=== PATIENT | female | born 1995 | race Hispanic/Latino ===

== ENCOUNTER 2018-10-16 06:42 | Inpatient (IN) | payer OTHER ==
[2018-10-16] MEDS ORDERED: miSOPROStol 100 MCG TAB ONE (16:27)
[2018-10-16] MEDS ORDERED: Ringers Lactate 1,000 ML IV PRN (16:51)
[2018-10-16] MEDS ORDERED: METHYLERGONOVINE 0.2MG/ML AMP IM PRN ×2 (16:51→21:45)
[2018-10-16] MEDS ORDERED: CARBOPROST TROME 250 MCG/ML IM PRN ×2 (16:51→21:45)
[2018-10-16] MEDS ORDERED: miSOPROStol 100 MCG TAB PO SCH ×2 (17:00→22:00)
[2018-10-16] MEDS ORDERED: Ringers Lactate 1,000 ML IV SCH (17:00)
[2018-10-16 17:30] LABS: Absolute Lymphocytes (CBC) 1.5 K/uL (0.7-4.9); Absolute Monocytes 0.7 K/uL (0.1-1.3); Absolute Neutrophil 9.9 K/uL (1.8-8.0); Basophils % 0.2 % (0-1.3); Eosinophils % 0.8 % (0-4.4); Hematocrit 30.4 % (36.0-45.0); Lymphocytes % 12.1 % (15.3-44.8); MPV 7.4 fL (7.6-11.3); Monocytes % 5.5 % (3.3-12.3); RBC Red Blood Cell Count 3.76 M/uL (3.86-4.86)
[2018-10-16 17:33] VITALS: BMI 40.5
[2018-10-16 18:14] LABS: RPR Titer ND
[2018-10-16] MEDS ORDERED: MEPERIDINE HCL 25 MG/0.5 ML IV PRN (21:45)
[2018-10-16] MEDS ORDERED: BUTORPHANOL 1 MG/ML INJ IV PRN (21:45)
[2018-10-16] MEDS ORDERED: PROMETHAZINE 25 MG/ML VIAL IM PRN (21:45)
[2018-10-16 22:04] LABS: Urine Appearance CLEAR; Urine Bilirubin NEGATIVE (NEG); Urine Blood NEGATIVE (NEG); Urine Color YELLOW; Urine Glucose NEGATIVE (NEG); Urine Microscopic Reflex NO UMIC; Urine Protein NEGATIVE (NEG); Urine Urobilinogen 0.2 mg/dL (0.2-1.0); Urine pH 6.5 (5.0-7.0)
[2018-10-16 22:29] LABS: Urine Amorphous Sediment 1+ /HPF (NONE SEEN); Urine Bacteria 20-50 /HPF (<20); Urine Culture Reflex Order REFLEXED; Urine RBC <5 /HPF (NONE SEEN)
[2018-10-16] MEDS: ZOLPIDEM TARTRATE 5 MG TABLET PO PRN ×2 (22:45→23:15)
[2018-10-17] MEDS ORDERED: ROPIVACAINE HCL 100 ML IV PRN (02:47)
[2018-10-17] MEDS ORDERED: ROPIVACAINE HCL 0.2% 20ML AMP IV ONE (02:52)
[2018-10-17] MEDS ORDERED: FENTANYL CITR 100 MCG/2 ML IV ONE (04:49)
[2018-10-17] MEDS ORDERED: OXYTOCIN/LR 20 UNIT/1,000 ML BAG IV SCH ×2 (05:00→09:00)
[2018-10-17] MEDS ORDERED: FENTANYL CITR 100 MCG/2 ML ONE (05:27)
[2018-10-17] MEDS ORDERED: METHYLERGONOVINE 0.2MG/ML AMP IM PRN (07:45)
[2018-10-17] MEDS ORDERED: CARBOPROST TROME 250 MCG/ML IM PRN (07:45)
[2018-10-17] MEDS ORDERED: LIDOCAINE 1% 20 ML MDV IV ONE (07:47)
[2018-10-17] MEDS ORDERED: LIDOCAINE 1% 20 ML MDV ONE (08:15)
[2018-10-17] MEDS ORDERED: DIPHENHYDRAMINE 25 MG TAB/CAP PO PRN (08:28)
[2018-10-17] MEDS ORDERED: ACETAMINOPHEN 500 MG TAB PO PRN (08:28)
[2018-10-17] MEDS ORDERED: DOCUSATE NA/SENNA CONC 1 TAB PO PRN (08:28)
[2018-10-17] MEDS ORDERED: BISACODYL 10 MG RECTAL SUPP RECT PRN (08:28)
--- NOTE | 2018-10-17 08:56 | PREOPHP ---
Date of Admission: 10/16/2018 A 22-year-old 2, para 1, 39 weeks gestation for Cytotec preparation of the cervix. Full disc ussion prior to admission about Cytotec, increased risk for hypertonic contractions, C-sections but t he patient wishes to proceed. She is 1.5 cm, 50% effaced, vertex, cervix is posterior -1 station on the vertex, FHT is normal, reactive. Vital are stable. Rh positive, immune to Rubella. Negative be ta strep screen. Cytotec talk given. Anticipate labor sometime this evening or tomorrow morning calvin allison. BEULAH/KAYLEIGH Voice ID: [id number]
[2018-10-17] MEDS: IBUPROFEN 200 MG TAB PO PRN ×2 (09:29→17:00)
[2018-10-17] MEDS: Oxycodone HCl/Acetaminophen 1 TAB TAB PO PRN ×4 (09:29→21:15)
--- NOTE | 2018-10-17 09:34 | PREOPHP ---
Date of Admission: 10/16/2018 Addendum: Delivery anticipated sometime tomorrow, not tomorrow serenity RIOJAS/KAYLEIGH Voice ID: [id number]
--- NOTE | 2018-10-17 11:52 | PN ---
The patient is doing pelvic rocks as instructed. After rupture of membranes she has shown very rapid progress. She is now 6.5, 90%, 0 station. Scalp electrode placed. Fluid is still nice and clear. Vital signs are stable. She is starting to feel pressure. Preparations are being made for delivery as it appears she is going quite rapidly from this point forward. BEULAH/KAYLEIGH Voice ID: [id number] Report ID: [id number]
--- NOTE | 2018-10-17 11:52 | PN ---
A 22-year-old 2, para 1. The patient is on 6 milliunits of Pitocin during the night. Reques billie and received epidural anesthesia. She has progressed to 3.5 to almost 4 cm, 70% effaced, vertex, -1 station. Rupture of membranes, clear fluid. She is quite numb with the epidural, we will leave it at current setting but as we approach delivery we may decrease it a little bit so the patient can push more effectively when the time comes. Full discussion with the patient this morning. BEULAH/KAYLEIGH Voice ID: [id number] Report ID: [id number]
--- NOTE | 2018-10-17 11:55 | PN ---
A 22-year-old 2, para 1, 39 weeks. Cytotec was placed yesterday evening. The patient states that at 3 a.m. she went into an active labor. This morning was 3.5 to 4 cm, rupture of membranes, c lear fluid. The patient went very rapidly to complete and delivered before 8 a.m. Second stage about 15 minutes. Spontaneous vaginal delivery of an estimated 8-pound plus or minus female, nuchal cord x1. Apgars 8 and 9. Small first-degree laceration repaired with 2-0 chromic. Schultze delivery of the placenta, which was inspected and noted to be intact and normal. 350 cc blood loss. Uterus cont racted down well with IV drip Pitocin and massage. The patient is Rh positive, immune to Rubella. N egative beta strep screen. Tolerated all procedures well. Final Diagnoses: Term intrauterine 39 weeks 1 day at the time of delivery. Cytotec for la bor induction. Vaginal delivery. Epidural anesthesia. Nuchal cord x1. BEULAH/KAYLEIGH Voice ID: [id number] Report ID: [id number]
[2018-10-17] MEDS ORDERED: ZOLPIDEM TARTRATE 5 MG TABLET PO SCH (21:00)
[2018-10-18] MEDS: Oxycodone HCl/Acetaminophen 1 TAB TAB PO PRN ×2 (01:15→08:15)
[2018-10-18 08:14] VITALS: BP 119/68; TEMP 97.8
--- NOTE | 2018-10-18 19:30 | DS ---
Date of Discharge: 10/18/2018 A 22-year-old, 2, para 1, 39 weeks and 1 day at the time of delivery. Rh positive, immune to Rubella. Negative beta strep screen. The patient was delivered of an 8-pound 9-ounce female. Apga rs 8 and 9. Small first-degree laceration repaired with 2-0 chromic under local infiltration. Epidu ral anesthesia gave good effect during remainder of labor and delivery. Nuchal cord x1 noted at time of delivery. Schultze delivery of the placenta. Estimated blood loss 350 cc or less. , afebrile. Ambulating and voiding. Lochia is normal. She will be dismissed later this morning to re port back to my office in 6 weeks for followup, to report any temperature elevation of 100 degrees or greater, severe pain, heavy bleeding, or any other type of abnormalities. Offered Tdap administrati on, numerous times during the and again today. The patient will decide before she leaves. No post epidural problems. Dismissed with tramadol for analgesia, although she may elect to take Mo marya instead. Final Diagnoses: Term intrauterine 39 weeks 1 day at delivery, 8-pound 9-ounce female. Nu chal cord x1. Tdap offered. BEULAH/KAYLEIGH Voice ID: [id number] Report ID: [id number]
[2018-10-18 20:32] LABS: RPR (Rapid Plasma Reagin) NON-REACT (NON-REACT)
[2018-10-19 17:39] LABS: HBsAG Nonreactive (Nonreactive)
--- NOTE | 2018-10-21 17:25 | OP ---
Surgeon: Alan Grimaldo MD A 22-year-old 2, para 1, 39 weeks 1 day. Rh positive, immune to Rubella. Negative beta stre p screen. The patient was delivered of an 8-pound 9-ounce female, uneventful labor, uneventful secon d stage, Apgars 8 and 9. Small first-degree laceration repaired with 2-0 chromic under local infiltr ation. Nuchal cord x1 noted at time of delivery. Schultze delivery of the placenta. Estimated bloo d loss 350 cc. Tolerated all procedures well. Final Diagnoses: Vaginal delivery at 39 weeks 1 day. Loose nuchal cord. BEULAH/KAYLEIGH Voice ID: [id number] Report ID: [id number]
== END 2018-10-18 10:15 | disposition home or self-care (01) | DRG 807 ==
LOC: 2ND-WC 15:55
PROVIDERS: ADMIT Specialist; ATTEND Specialist
PROC: 3E0P7VZ Introduction of Hormone into Female Reproductive, Via Natural or Artificial Opening (ICD-10-PCS; 2018-10-16)
PROC: 10907ZC Drainage of Amniotic Fluid, Therapeutic from Products of Conception, Via Natural or Artificial Opening (ICD-10-PCS; principal; 2018-10-17)
PROC: 10E0XZZ Delivery of Products of Conception, External Approach (ICD-10-PCS; 2018-10-17)
PROC: 0HQ9XZZ Repair Perineum Skin, External Approach (ICD-10-PCS; 2018-10-17)
DX: O70.0 First degree perineal laceration during delivery (principal); Z37.0 Single live birth; O69.81X0 Labor and delivery complicated by cord around neck, without compression, not applicable or unspecified; Z3A.39 39 weeks gestation of pregnancy
CPT/HCPCS: 36415; 81003; 81015; 85025; 86592; 86901; 87086; 87088; 87340; J0595; J2210; J2550; J2590; J2795; J3010

== ENCOUNTER 2021-06-19 03:48 | Inpatient (IN) | payer OTHER ==
[2021-06-19] MEDS ORDERED: CARBOPROST TROME 250 MCG/ML IM PRN (04:00)
[2021-06-19] MEDS ORDERED: METHYLERGONOVINE 0.2MG/ML AMP IM PRN (04:00)
[2021-06-19] MEDS ORDERED: Ringers Lactate 1,000 ML IV SCH (04:00)
[2021-06-19] MEDS ORDERED: Ringers Lactate 1,000 ML IV PRN (04:00)
[2021-06-19] MEDS ORDERED: OXYTOCIN/LR 20 UNIT/1,000 ML BAG IV SCH ×2 (04:00→12:00)
[2021-06-19] MEDS ORDERED: BUTORPHANOL 1 MG/ML INJ IV PRN (04:00)
[2021-06-19] MEDS ORDERED: PROMETHAZINE INJ 25 MG/ML AMP IM PRN (04:00)
[2021-06-19] MEDS ORDERED: PENICILLIN 5 MU in NA CHLORIDE 0.9% 100 ML IV ONE (04:00)
[2021-06-19 05:36] LABS: Absolute Lymphocytes (CBC) 2.5 K/uL (0.7-4.9); Hematocrit 30.5 % (36.0-45.0); Lymphocytes % 26.5 % (15.3-44.8); MPV 7.7 fL (7.6-11.3); RBC Red Blood Cell Count 3.76 M/uL (3.86-4.86)
[2021-06-19 05:58] VITALS: BMI 34.5
[2021-06-19] MEDS ORDERED: LIDOCAINE 1% 20 ML MDV ONE (07:50)
[2021-06-19] MEDS ORDERED: PENICILLIN 2.5 MU in NA CHLORIDE 0.9% 100 ML IV SCH (08:00)
--- NOTE | 2021-06-19 08:16 | PREOPHP ---
Date of Admission: 06/19/2021 History Of Present Illness: Esteban Ruiz is a 25-year-old, 3, para 2, 39 weeks for inductio n. Pros and cons of this thoroughly discussed prior to admission. The patient is Rh positive, immun e to rubella, positive strep. She will be getting antibiotics during the labor. Positive COVID, abs olutely no symptoms whatsoever. Family History: Noncontributory. Past Medical History: The patient has had a gastric sleeve and her tonsils removed. No STDs. Allergies: NO HISTORY OF ALLERGIES. Social History: No cigarette smoking. Medications: No medicines prior to admission other than vitamins and iron. Physical Examination: HEENT: Clear. Pupils equal, round, reactive to light and accommodation. Conjunctivae well perfused . No oral, lingual, or buccal lesions. Chest and Lungs: Clear. Heart: Without murmurs, thrills, heaves, or rubs. Breasts: Not examined today, but without masses on previous visits. Abdomen: Term size. Extremities: Clear without edema, cyanosis, or clubbing. Pelvic: A 2 cm, still somewhat posterior, 50% effaced. Rupture of membranes, clear fluid. FHTs nor mal, reactive. Assessment And Plan: Anticipate more active labor as the day goes on. The patient probably will be requesting epidural. Full labor talk given. BEULAH/KAYLEIGH Voice ID: [id number]
[2021-06-19] MEDS ORDERED: ROPIVACAINE HCL 0.2% 20ML AMP EP ONE (08:32)
[2021-06-19] MEDS ORDERED: 0.2% ROPIVACAINE (200 MG/100 ML) BAG EP ONE (08:34)
[2021-06-19] MEDS ORDERED: FENTANYL CITR 100 MCG/2 ML IV ONE (08:35)
[2021-06-19] MEDS ORDERED: BISACODYL 10 MG RECTAL SUPP RC PRN (11:48)
[2021-06-19] MEDS ORDERED: IBUPROFEN 600 MG TAB PO PRN (11:48)
[2021-06-19] MEDS ORDERED: Oxycodone HCl/Acetaminophen 1 TAB TAB PO PRN ×2 (11:48)
[2021-06-19] MEDS ORDERED: DOCUSATE NA/SENNA CONC 1 TAB PO PRN (11:48)
[2021-06-19] MEDS ORDERED: DIPHENHYDRAMINE 25 MG TAB/CAP PO PRN (11:48)
[2021-06-19] MEDS ORDERED: ACETAMINOPHEN 500 MG TAB PO PRN (11:48)
--- NOTE | 2021-06-19 13:31 | OP ---
Surgeon: Alan Grimaldo MD Procedure In Detail: Esteban Ruiz is 25-year-old, 3, para 2, 39 weeks gestation, followed a ntepartum without complications. Rh positive, immune to rubella, positive strep. Positive COVID, ac tually no symptoms from COVID. This morning, she was 2 cm, rupture of membranes, clear fluid. When she reached 4, requested and received epidural anesthesia, which gave excellent effect. Then, went t o complete within the next 30 minutes. Second stage of about 10 minutes. Spontaneous vaginal delive ry of a 6-pound 10-ounce female, Apgars 9 and 9. Delayed cord clamping at her request. One extremel y small tear in the epithelium at the posterior fourchette, 1 uevxth-cc-uholn stitch, 2-0 chromic at that point. Uterus moderately hypotonic. 0.2 mg of Methergine IM as well as IV drip and massage, an d intrauterine exploration all negative. We will give the patient 1 g of Ancef for prophylaxis, keep her on Methergine for at least 4 doses, keep the IV going until later this evening, but right now, t he uterus is very firm and the lochia is minimal. Final Diagnoses: Term intrauterine at 39 weeks, vaginal delivery, positive COVID, positive strep, penicillin prophylaxis, moderate uterine hypotonus now resolved. BEULAH/GUALBERTOL Voice ID: [id number] Report ID: [id number]
[2021-06-19] MEDS ORDERED: CEFAZOLIN 1 GM in NA CHLORIDE 0.9% 50 ML IVPB ONE (13:48)
[2021-06-19] MEDS ORDERED: CEFAZOLIN/NS 1gm 1 GM/50 ML BAG ONE (13:49)
[2021-06-19] MEDS: METHYLERGONOVINE 0.2 MG TAB PO PRN ×3 (15:45→23:13)
[2021-06-20] MEDS: METHYLERGONOVINE 0.2 MG TAB PO PRN (03:37)
--- NOTE | 2021-06-20 08:16 | DS ---
Hospital Course: Esteban Ruiz is a 25-year-old, 3, para 2, 39 weeks gestation, delivered a 6-pound 10-ounce female, Apgars 9 and 9. No episiotomy. Very small first-degree laceration, which b dee broke the epithelial surface, 1 aoratp-hy-qsbst stitch with 2-0 chromic under local infiltratio deven Nguyen delivery of the placenta, which was inspected and noted to be intact and normal. Modera te uterine hypotonus. 0.2 mg of Methergine IM followed by p.o. Methergine 1 tablet every 4 hours for 4 doses. Estimated blood loss 450 cc. Penicillin prophylaxis as the patient was strep positive. S he is also COVID positive, absolutely without symptoms. She will be dismissed later today to report back to my office in 6 weeks for followup to report any temperature elevation of 100 degrees or great er, severe pain, heavy bleeding, or any other type of abnormalities. Tdap has been discussed with th e patient. We will find out if she has not had it and offer to her again here in the hospital. Final Diagnoses: Term intrauterine at 39 weeks, labor induction, vaginal delivery, moderat e uterine hypotonus, penicillin prophylaxis. VINAYAKC/MODL Voice ID: [id number] Report ID: [id number]
[2021-06-20 13:26] VITALS: BP 110/62; TEMP 97.8
[2021-06-20 20:52] LABS: RPR (Rapid Plasma Reagin) NON-REACT (NON-REACT)
[2021-06-22 12:55] LABS: HBsAG Nonreactive (Nonreactive)
== END 2021-06-20 13:15 | disposition home or self-care (01) | DRG 805 ==
LOC: 2ND-WCNRSY 03:48 → 2ND-WC 05:27
PROVIDERS: ADMIT Specialist; ATTEND Specialist
PROC: 10E0XZZ Delivery of Products of Conception, External Approach (ICD-10-PCS; principal; 2021-06-19)
PROC: 10907ZC Drainage of Amniotic Fluid, Therapeutic from Products of Conception, Via Natural or Artificial Opening (ICD-10-PCS; 2021-06-19)
PROC: 0HQ9XZZ Repair Perineum Skin, External Approach (ICD-10-PCS; 2021-06-19)
PROC: 3E033VJ Introduction of Other Hormone into Peripheral Vein, Percutaneous Approach (ICD-10-PCS; 2021-06-19)
DX: O98.52 Other viral diseases complicating childbirth (principal); U07.1 COVID-19; Z37.0 Single live birth; O70.0 First degree perineal laceration during delivery; O99.824 Streptococcus B carrier state complicating childbirth; O62.2 Other uterine inertia; Z3A.39 39 weeks gestation of pregnancy
CPT/HCPCS: 36415; 85025; 86592; 87340; J0595; J0690; J2210; J2540; J2550; J2590; J2795; J3010; J7120; U0003

== ENCOUNTER 2022-09-09 16:25 | Emergency (ER) | payer OTHER ==
--- OUTSIDE RECORDS SUMMARY | 2022-09-09 16:31 | XMS REPORT | Continuity of Care Document ---
:1995 Author Organization [facility] t Address [address] [place] [address] Care Team Providers Name Role Phone PCP, PATIENT DOES NOT HAVE A Primary Care Physician Unavaila ARUN Morales Attending Clinician Unavailable Taran ARBOLEDA, Arun Vásquez Attending Clinician Kevin Shane CRNA Attending Clinician Gideon Castillo MD Attending Clinician Pob, Ad[facility] Lab Main Attending Clinician Unavailable Only, Adc Test Attending Clinician Unavailable Doctor Unassigned, [place] Attending Clinician Unavailable Arun Chirinos MD Admitting Clinician ARUN CHIRINOS Admitting Clinician Unavailable Payers Payer Name Policy Type Policy Number Effective Date Expiration Date Formerly [facility] [id number] 2021 CHOICE MEDICAID 00:00:00 Problems Condition Condition Condition Status Onset Resolution Last Treating Co mments Source Name Details Category Date Date Treatment Clinician Date Status Status Disease Active Univers post post 5-24 [place] sal[place] salping[place] 00 Me dical charu charu Branch Encounter Encounter Disease Active Overview: Univers for tubal for tubal 4-15 Formattin i ty of ligation ligation 00:00: g of this [place] as 00 note Medical might be Branch different from the original. Added automatic ally from request for surgery [id number] Allergies, Adverse Reactions, Alerts Allergy Allergy Status Severity Reaction(s) Onset Inactive Treating Comm ents Source Name Type Date Date Clinician NO KNOWN Drug Active Univers ALLERGIE Class ity of [facility] Social History Social Habit Start Date Stop Date Quantity Comments Source History SDOH University o f Alcohol Frequency [place] M edical Branch History On license of [facility] o f Alcohol Std [place] Medical Drinks Branch History On license of [facility] o f Alcohol Binge [place] Medic al Branch Alcohol intake 2021-09-30 2021-09-30 Current drinker of Un iversity of 00:00:00 00:00:00 alcohol (finding) [facility] edical Branch Exposure to 2021-09-13 2021-09-23 Not sure University SARS-CoV-2 00:00:00 09:05:00 [facility] (event) Branch Tobacco use and 2021-08-22 2021-08-22 Never used Universit y of exposure 00:00:00 00:00:00 [facility] Alcohol Comment 2021-08-22 2021-08-22 occasionally Univers ity of 00:00:00 00:00:00 [facility] Sex Assigned At [birth year] Universit y of 00:00:00 00:00:00 [facility] Smoking Status Start Date Stop Date Source Never smoker [facility] Medications Ordered Filled Start Stop Current Ordering Indication Dosage Frequency Signature Comments Components Source Medication Medication Date Date Medication? Clinician (SIG) Name Name HYDROmorpho Yes .2mg 0.2 mg, Uni vers ne 5-24 Slow IV ity of (DILAUDID) 14:16: Push, [place] injection 14 Q5MIN PRN, Medi prerna 0.2 mg 10 doses, Branch Starting on Wed09/30/21 at 0916, Until Discontinu ed, Routine, Pain (scale 7-10), PACU
Us e approved by (Faculty): PACU USE -ANESTHESI A SERVICE-HY DROMORPHON E INJECTIONS FENTanyl PF Yes 25ug 25 mcg, Uni vers (SUBLIMAZE 5-24 Slow IV ity of (PF)) 14:16: Push, [place] injection 14 Q5MIN PRN, Medi prerna 25 mcg 4 doses, Branch Starting on Wed09/30/21 at 0916, Until Discontinu ed, Routine, Pain (scale 4-6), PACU ondansetron Yes 4mg 4 mg, Slow Univers (ZOFRAN 5-24 IV Push, ity of (PF)) 14:16: PRN, 1 [place] injection 4 14 dose, Medical mg Starting Branch on Wed09/30/21 at 0916, Until Discontinu ed, Routine, Nausea and Vomiting (N/V), PACU HYDROmorpho 2021- No .2mg 0.2 mg, Un demetris ne 09-30 Slow IV ity of (DILAUDID) 14:16: 18:04 Push, [place] injection 14 :03 Q5MIN PRN, Medi prerna 0.2 mg 10 doses, Branch Starting on Wed09/30/21 at 0916, Until Wed09/30/21 at 1304, Routine, Pain (scale 7-10), PACU
Us e approved by (Faculty): PACU USE -ANESTHESI A SERVICE-HY DROMORPHON E INJECTIONS FENTanyl PF 2021- No 25ug 25 mcg, Un demetris (SUBLIMAZE 09-30 Slow IV ity o f (PF)) 14:16: 18:04 Push, [place] injection 14 :03 Q5MIN PRN, Medi prerna 25 mcg 4 doses, Branch Starting on Wed09/30/21 at 0916, Until Wed09/30/21 at 1304, Routine, Pain (scale 4-6), PACU ondansetron 2021- No 4mg 4 mg, Slow Univers (ZOFRAN 09-30 IV Push, ity of (PF)) 14:16: 18:04 PRN, 1 [place] injection 4 14 :03 dose, Medical mg Starting Branch on Wed09/30/21 at 0916, Until Wed09/30/21 at 1304, Routine, Nausea and Vomiting (N/V), PACU neostigmine 2021- No Slow IV Un demetris methylsulfa 09-30 Push, ONCE i ty of te 13:48: 14:00 INTRA [place] (BLOXIVERZ) 00 :57 PROCEDURE, Me dical injection Starting Branch on Wed09/30/21 at 0848, Until Wed09/30/21 at 0900, Routine, Intra-op ondansetron 2021- No Slow IV Un demetris (ZOFRAN 09-30 Push, ONCE ity o f (PF)) 13:36: 14:00 INTRA [place] injection 00 :57 PROCEDURE, [facility] prerna Starting Branch on Wed09/30/21 at 0836, Until Wed09/30/21 at 0900, Routine, Intra-op water for Yes PRN, Univers irrigation 09-30 Starting ity o f irrigation 13:30: on Wed [place] solution 00 09/30/21 at Medic al 0830, Branch Until Discontinu ed, Routine, Intra-op water for 2021- No PRN, Univers irrigation 09-30 Starting ity of irrigation 13:30: 18:04 on Wed [place] solution 00 :03 09/30/21 at Medic al 0830, Branch Until Wed09/30/21 at 1304, Routine, Intra-op glycopyrrol 2021- No Intravenou Univers ate 09-30 s, ONCE ity of (ROBINUL) 13:27: 14:00 INTRA [place] injection 00 :57 PROCEDURE, [facility] Starting Branch on Wed09/30/21 at 0827, Until Wed09/30/21 at 0900, Routine, Intra-op bupivacaine 2021- No PRN, Unive rs -epinephrin 09-30 Starting ity of e-pf 13:15: 14:24 on Wed (SENSORCAIN 00 :44 09/30/21 at Nc dical E 0815, Branch W/EPINEPHRI Until Wed) 0.5 09/30/21 at %-1:200,000 0924, injection Routine, Intra-op ketorolac 2021- No Slow IV Univ ers (TORADOL) 09-30 Push, ONCE ity of injection 13:09: 14:00 INTRA [place] 00 :57 PROCEDURE, Medical Starting Branch on Wed09/30/21 at 0809, Until Wed09/30/21 at 0900, Routine, Intra-op acetaminoph 2021- No IV Unive rs en ADULT 09-30 Infusion, ity o f (OFIRMEV) 13:09: 14:00 Administer [place] injection 00 :57 over 15 Medical Minutes, Branch ONCE INTRA PROCEDURE, Starting on Wed09/30/21 at 0809, Until Wed09/30/21 at 0900, Routine, Intra-op dexamethaso 2021- No IV Push, U nivers ne 09-30 ONCE INTRA ity of (DECADRON 13:06: 14:00 PROCEDURE, [place] PHOSPHATE) 00 :57 Starting Medic al injection on Branch 09/30/21 at 0806, Until Wed09/30/21 at 0900, Routine, Intra-op rocuronium 2021- No IV Push, Un demetris (ZEMURON) 09-30 ONCE INTRA ity of injection 12:47: 14:00 PROCEDURE, [place] 00 :57 Starting Medical on Wed Branch 09/30/21 at 0747, Until Wed09/30/21 at 0900, Routine, Intra-op propofoL IV 2021- No Intravenou Univers infusion 09-30 s, ONCE ity of 12:47: 14:00 INTRA [place] 00 :57 PROCEDURE, Medical Starting Branch on Wed09/30/21 at 0747, Until Wed09/30/21 at 0900, Routine, Intra-op lidocaine 2021- No Intravenou U nivers 1% 09-30 s, ONCE ity of (XYLOCAINE) 12:47: 14:00 INTRA [place] 100 mg/10 00 :57 PROCEDURE, Medi prerna mL (1 %) Starting Branch injection on Wed09/30/21 at 0747, Until Wed09/30/21 at 0900, Routine, Intra-op FENTanyl PF 2021- No Intravenou Univers (SUBLIMAZE 09-30 s, ONCE ity o f (PF)) 12:47: 14:00 INTRA [place] injection 00 :57 PROCEDURE, Medi prerna Starting Branch on Wed09/30/21 at 0747, Until Wed09/30/21 at 0900, Routine, Intra-op lactated 2021- No IV Univers ringers IV 09-30 Infusion, ity of infusion 12:41: 14:00 CONTINUOUS [place] 00 :57 PRN, Medical Starting Branch on Wed09/30/21 at 0741, Until Wed09/30/21 at 0900, Routine, Intra-op midazolam 2021- No IV Push, Uni vers (VERSED) - 05-24 ONCE INTRA ity of injection 12:41: 14:00 PROCEDURE, [place] 00 :57 Starting Medical on Wed09/30/21 at 0741, Until Wed09/30/21 at 0900, Routine, Intra-op lactated 2021- No 1000mL at 42 Unive rs ringers IV 5-24 05-24 mL/hr, ity of infusion 11:45: 11:51 1,000 mL, [place] 1,000 mL 00 :00 IV Medical Infusion, Branch ONCE, 1 dose, On Wed09/30/21 at 0645, Routine, DSU Pre-op lactated 2021- No 1000mL at 42 Unive rs ringers IV 5-24 05-24 mL/hr, ity of infusion 11:45: 11:51 1,000 mL, [place] 1,000 mL 00 :00 IV Medical Infusion, Branch ONCE, 1 dose, On Wed09/30/21 at 0645, Routine, DSU Pre-op MULTIVITAMI 2021- No 1{tbl} Take 1 U nivers N ORAL 5-24 05-24 tablet by ity of 08:44: 00:00 mouth [place] 55 :00 daily. Medical Branch MULTIVITAMI 2021- No 1{tbl} Take 1 U nivers N ORAL 5-24 05-24 tablet by ity of 08:44: 00:00 mouth [place] 55 :00 daily. Medical Branch MULTIVITAMI 2021- No 1{tbl} Take 1 U nivers N ORAL 5-24 05-24 tablet by ity of 08:44: 00:00 mouth [place] 55 :00 daily. Medical Branch ibuprofen Yes [id number] 600mg Take 1 Univers 600 mg 5-24 tablet by ity of tablet 00:00: mouth [place] 00 every 6 Medical (six) Branch hours as needed for Pain (scale 1-3) or Pain (scale 4-6). acetaminoph Yes [id number] 650mg Take 2 Univers en 5-24 tablets by ity of (TYLENOL) 00:00: mouth [place] 325 mg 00 every 6 Medical tablet (six) Branch hours as needed for Pain (scale 1-3) or Pain (scale 4-6). simethicone Yes [id number] 80mg Take 1 Univers 80 mg 5-24 tablet by ity of chewable 00:00: mouth [place] tablet 00 after Medical meals and Branch at bedtime. ibuprofen Yes [id number] 600mg Take 1 Univers 600 mg 5-24 tablet by ity of tablet 00:00: mouth [place] 00 every 6 Medical (six) Branch hours as needed for Pain (scale 1-3) or Pain (scale 4-6). acetaminoph Yes [id number] 650mg Take 2 Univers en 5-24 tablets by ity of (TYLENOL) 00:00: mouth [place] 325 mg 00 every 6 Medical tablet (six) Branch hours as needed for Pain (scale 1-3) or Pain (scale 4-6). simethicone Yes [id number] 80mg Take 1 Univers 80 mg 5-24 tablet by ity of chewable 00:00: mouth [place] tablet 00 after Medical meals and Branch at bedtime. HYDROcodone 2021- No 4647 1{tbl} Take 1 U nivers -acetaminop 5-24 06-01 tablet by it y of hen 5-325 00:00: 04:59 mouth [place] mg tablet 00 :00 every 6 Medical (six) Branch hours as needed for Pain (scale 7-10) for up to 7 days. Indication s: acute pain HYDROcodone 2021- No 4647 1{tbl} Take 1 U nivers -acetaminop 5-24 06-01 tablet by it y of hen 5-325 00:00: 04:59 mouth [place] mg tablet 00 :00 every 6 Medical (six) Branch hours as needed for Pain (scale 7-10) for up to 7 days. Indication s: acute pain MULTIVITAMI Yes 1{tbl} Take 1 Un demetris N ORAL 5-17 tablet by ity of 09:03: mouth [place] 17 daily. Medical Branch MULTIVITAMI Yes 1{tbl} Take 1 Un demetris N ORAL 5-17 tablet by ity of 09:03: mouth [place] 17 daily. Medical Branch MULTIVITAMI Yes 1{tbl} Take 1 Un demetris N ORAL 5-17 tablet by ity of 09:03: mouth [place] 17 daily. Medical Branch MULTIVITAMI Yes 1{tbl} Take 1 Un demetris N ORAL 4-29 tablet by ity of 11:57: mouth [place] 57 daily. Medical Branch MULTIVITAMI Yes 1{tbl} Take 1 Un demetris N ORAL 4-29 tablet by ity of 11:57: mouth [place] 57 daily. Medical Branch Vital Signs Vital Name Observation Time Observation Value Comments Source Systolic blood 2021-09-30 15:10:00 108 mm[Hg] Univer sity of [facility] Diastolic blood 2021-09-30 15:10:00 63 mm[Hg] Unive rsity of [facility] Heart rate 2021-09-30 15:10:00 55 /min [facility] Respiratory rate 2021-09-30 15:10:00 15 /min Univ ersity of [facility] Oxygen saturation in 2021-09-30 15:10:00 99 /min University of Arterial blood by [facility] Pulse oximetry Branch Body temperature 2021-09-30 13:57:00 36.33 Stefany [facility] Body height 2021-09-16 13:14:00 167.6 cm [facility] Body weight 2021-09-16 13:14:00 91.5 kg [facility] BMI 2021-09-16 13:14:00 32.57 kg/m2 [facility] Heart rate 2021-09-30 15:10:00 55 /min [facility] Respiratory rate 2021-09-30 15:10:00 15 /min Univ ersity of [facility] Branch Oxygen saturation in 2021-09-30 15:10:00 99 /min University of Arterial blood by [facility] Pulse oximetry Branch Systolic blood 2021-09-30 15:10:00 108 mm[Hg] Univer sity of [facility] Diastolic blood 2021-09-30 15:10:00 63 mm[Hg] Unive rsity of [facility] Body temperature 2021-09-30 13:57:00 36.33 Stefany Univ ersity of [facility] Body height 2021-09-16 13:14:00 167.6 cm Universi ty [facility] [place] [facility] Body weight 2021-09-16 13:14:00 91.5 kg Universi ty [facility] [place] [facility] BMI 2021-09-16 13:14:00 32.57 kg[facility]m2 [facility] Respiratory rate 2021-09-30 13:51:00 22 /min [facility] Systolic blood 2021-09-05 16:55:00 106 mm[Hg] Univer sity of [facility] Diastolic blood 2021-09-05 16:55:00 68 mm[Hg] Unive rsity of [facility] Heart rate 2021-09-05 16:55:00 82 /min [facility] [place] [facility] Body temperature 2021-09-05 16:55:00 36.72 Stefany [facility] Respiratory rate 2021-09-05 16:55:00 16 /min [facility] Body height 2021-09-05 16:55:00 167.6 cm [facility] [place] [facility] Body weight 2021-09-05 16:55:00 91.491 kg [facility] [place] [facility] BMI 2021-09-05 16:55:00 32.56 kg/m2 [facility] Procedures Procedure Date / Time Performing Clinician Source Performed INTUBATION 2021-09-30 12:49:00 Goldie Davis [facility] [place] [facility] LAPAROSCOPIC 2021-09-30 12:32:00 Ch[facility]inos [facility] SALPINGECTOMY [facility] HB ABO GROUPING 2021-09-30 11:50:00 [facility] HB ABO GROUPING 2021-09-30 11:50:00 Taran [facility] POCT TEST 2021-09-30 11:40:00 Kevin Shane [facility] POCT TEST 2021-09-30 11:40:00 Kevin Shane [facility] CBC WITH DIFF 2021-09-29 16:10:00 [facility] ASSIGNMENT OF BENEFITS 2021-09-29 15:44:35 Doctor Unassigned, No [facility] [place] Name Medical Branch DISCLOSURE AND CONSENT, 2021-09-05 05:01:00 Doctor Unassigned, N o [facility] MEDICAL AND SURGICAL Name Medical Bra nc PROCEDURES STERILIZATION CONSENT 2021-08-22 05:01:00 Doctor Unassigned, No [facility] FORM Name Medical Branch STERILIZATION CONSENT 2021-08-22 05:01:00 Doctor Unassigned, No [facility] FORM Name Medical [place] Encounters Start End Encounter Admission Attending Care Care Encounter Source Date/Time Date/Time Type Type Clinicians Facility Department ID 2021-11-14 2021-11-14 Outpatient R ARUN CHIRINOS [facility] [id number] Univers 10:00:00 10:00:00 ity [facility] [place] [facility] 2021-11-14 2021-11-14 Outpatient R ARUN CHIRINOS [facility] [id number] Univers 10:00:00 10:00:00 ity [facility] [place] [facility] 2021-09-30 2021-09-30 [facility] Arun Chirinos [facility] [id number] Univers 06:36:00 10:40:00 Encounter Fahad SMITH [id number] ity of [id number] SURGICAL [id number] [facility] 071 Branch 2021-09-30 2021-09-30 Outpatient R ARUN CHIRINOS [facility] HAND OUTSIDE CUTTER [id number] Univers 06:36:00 10:40:00 ity of [facility] 2021-09-30 2021-09-30 Surgery Taran [facility] [id number] Univers 07:50:00 10:28:00 Cam LUIS [id number] i ty of [id number]ICAL [id number] [facility] 020 Branch 2021-09-30 2021-09-30 Anesthesia Kevin Shane [facility] [id number] Univers 07:42:00 09:00:00 Event Gideon Castillo [id number] ity of [id number] SUR[place]ICAL [id number] [facility] 020 Branch 2021-09-29 2021-09-29 Technical Mgr Daly, Anuradha Lab Main [facility] [id number] [id number] Univers 10:45:00 11:00:00 Visit Mahsa Chirinosaddi SMITH [id number] ity of [id number] [facility] [id number] N[place] dical [facility] 353 Branch [facility] 2021-09-29 2021-09-29 Laboratory Only, Anuradha Test [facility] 1.2.840. [id number] Univers 10:30:00 10:45:00 Only Mahsa Chirinosaddi SMITH [id number] ity of [id number] [place] [id number] [facility] 353 Branch 2021-09-29 2021-09-29 Outpatient R [facility] [id number] Univers 10:30:00 10:30:00 ity of [facility] 2021-09-29 2021-09-29 Outpatient R ARUN CHIRINOS [facility] [id number] Univers 10:30:00 10:30:00 ity of [facility] 2021-09-29 2021-09-29 Orders Doctor MOLINA [id number] Univers 00:00:00 00:00:00 Only Unassigned, JOJO [id number] ity of [place] [facility] 4.2.7.2.686 [place] [id number] [facility] 009 Branch 2021-09-05 2021-09-05 Outpatient R ARUN CHIRINOS [facility] [id number] Univers 11:30:00 12:12:52 ity of [facility] 2021-09-05 2021-09-05 [facility] [id number] Univers 11:30:00 12:12:52 Visit Fahad FRANCOIS [id number] it y of [id number] [facility] [id number] [facility] 134 Branch 2021-09-05 2021-09-05 Outpatient R ARUN CHIRINOS [facility] [id number] Univers 11:30:00 11:30:00 ity of [facility] 2021-09-05 2021-09-05 Orders Doctor MOLINA [id number] Univers 00:00:00 00:00:00 Only Unassigned, JOJO [id number] ity of [place] [facility] [id number] [place]bel as [id number] [address] 2021-08-22 2021-08-22 Office Arun Chirinos [id number] Univers 10:30:00 11:25:03 Visit Fahad FRANCOIS [id number] it y of [id number] [facility] [id number] [address] 2021-08-22 2021-08-22 Outpatient R ARUN CHIRINOS [facility] [id number] Univers 10:30:00 11:25:03 ity [facility] [place] [facility] 2021-08-22 2021-08-22 Outpatient R TARAN ARUN [facility] [id number] Univers 10:30:00 10:30:00 ity [facility] 2021-08-22 2021-08-22 Prep For Arun Chirinos [id number] Univers 00:00:00 00:00:00 Surgery Fahad FRANCOIS [id number] it y of [place] [id number] [id number] [address] 2021-08-22 2021-08-22 Orders Doctor MOLINA [id number] Univers 00:00:00 00:00:00 Only Unassigned, JOJO [id number] ity of [place] [facility] 4.2.7.2.686 [place] [id number] [address] Results Test Description Test Time Test Comments Results Result Comments Source Type and Screen - This is a pre-surgical type and scre en. ONCE 2021-09-30 12:59:55 CHINO Test Item Value Reference Range Interpretation Comme nts ABO & RH (test code = 20) O Positive Pe rformed at [facility] Laboratory Services - [facility] Blood Phgb[address] Free: [phone] A No. [id number] IAT (test code = 1185) Negative Perfo rmed at [facility] Laboratory Services - [facility] Blood [address] [address]Toll Free: [phone] A No. [id number] [facility] [place] [facility] and Screen - This is a pre-surgical type and screen. ONCE [id number] 12:59:55 Test Item Value Reference Range Interpretation Comments ABO & RH (test code O Positive Performe d at [facility] = 20) Laboratory Serv [facility] Blood Bank1 [address] [place], [place] [address]Toll Free: [phone] A No. [id number] IAT (test code = Negative Performed a t [facility] 1185) Laboratory Serv [facility] Blood Bank1 [address] [place] [address] Free: [phone] A No. [id number] [facility] [place] [facility] [id number] 11:40:00 Test Item Value Reference Range Interpretation Comments POCT PREG (test code = 1605) Negative On board controls acceptable with Yes C Line (test code = 3574) POCT PREG LOT # (test code = 3575) [id number] POCT PREG TEST DATE (test 2022-07-07 code = 3576) [facility] [id number] 11:40:00 Test Item Value Reference Range Interpretation Comments POCT PREG (test code = 1605) Negative On board controls acceptable with Yes C Line (test code = 3574) POCT PREG LOT # (test code = 3575) [id number] POCT PREG TEST DATE (test 2022-07-07 code = 3576) [facility] [place] [facility] WITH [id number] 16:20:02 Test Item Value Reference Range Interpretation Comments WBC (test code = See_Comment [Automated 6690-2) message] The sy stem which generated this result transmitted reference range : 4.30 - 11.10 10*3/?L. The reference range was not used to interpret this result as normal/abnormal . RBC (test code = See_Comment [Automated 789-8) message] The sy stem which generated this result transmitted reference range : 3.93 - 5.25 10*6/?L. The reference range was not used to interpret this result as normal/abnormal . HGB (test code = 11.4 g/dL 11.6-15.0 L 718-7) HCT (test code = 37.2 % 35.7-45.2 4544-3) MCV (test code = 85.3 fL 80.6-95.5 787-2) MCH (test code = 26.1 pg 25.9-32.8 785-6) MCHC (test code = 30.6 g/dL 31.6-35.1 L 786-4) RDW-SD (test code = 45.1 fL 39.0-49.9 93502-2) RDW-CV (test code = 14.5 % 12.0-15.5 788-0) PLT (test code = See_Comment [Automated 777-3) message] The sy stem which generated this result transmitted reference range : 166 - 358 10*3/ ?L. The reference r jeff was not used to interpret this result as normal/abnormal . MPV (test code = 9.5 fL 9.5-12.9 13232-7) NRBC/100 WBC (test See_Comment [Automat ed code = 9769236036) message] The system which generated this result transmitted reference range : 0.0 - 10.0 /100 WBCs. The refer ence range was not u sed to interpret th is result as normal/abnormal . NRBC x10^3 (test code <0.01 See_Comment [Auto mated = [id number]) message] The s ystem which generated this result transmitted reference range : 10*3/?L. The reference range was not used to interpret this result as normal/abnormal . GRAN MAT (NEUT) % 60.0 % (test code = 770-8) IMM GRAN % (test code 0.40 % = 8473864544) LYMPH % (test code = 28.8 % 736-9) MONO % (test code = 7.2 % 5905-5) EOS % (test code = 3.3 % 713-8) BASO % (test code = 0.3 % 706-2) GRAN MAT x10^3(ANC) 4.18 10*3/uL 1.88-7.09 (test code = 4512075661) IMM GRAN x10^3 (test 0.03 10*3/uL 0.00-0.06 code = 6436596648) LYMPH x10^3 (test code 2.01 10*3/uL 1.32-3.29 = 731-0) MONO x10^3 (test code 0.50 10*3/uL 0.33-0.92 = 742-7) EOS x10^3 (test code = 0.23 10*3/uL 0.03-0.39 711-2) BASO x10^3 (test code <0.03 0.01-0.07 = 704-7) Lab Interpretation Abnormal (test code = 52890-2) [facility]
[2022-09-09 17:55] LABS: Hematocrit 30.8 % (36.0-45.0); Lymphocytes % 7.2 % (15.3-44.8); MCV 80.2 fL (80-100); MPV 6.6 fL (7.6-11.3); RBC Red Blood Cell Count 3.84 M/uL (3.86-4.86)
[2022-09-09] MEDS ORDERED: NA CHLORIDE 0.9% 2,000 ML ONE (17:55)
[2022-09-09] MEDS ORDERED: ACETAMINOPHEN 500 MG TAB ONE (17:55)
[2022-09-09 17:58] LABS: Protime INR 1.21
[2022-09-09 18:13] LABS: Albumin 3.5 g/dL (3.4-5.0); Bilirubin Total 0.3 mg/dL (0.2-1.0); Potassium 3.8 mEq/L (3.5-5.1); Protein, Total 8.1 g/dL (6.4-8.2)
[2022-09-09 18:52] LABS: Specific Gravity 1.024 (1.005-1.030); Urine Bacteria <20 /HPF (<20); Urine Bilirubin NEGATIVE (Negative); Urine Blood Negative (Negative); Urine Clarity Clear (Clear); Urine Color Light-Yellow (Yellow); Urine Glucose NEGATIVE (Negative); Urine Mucus Slight /HPF (None Seen); Urine Protein NEGATIVE (Negative); Urine RBC <5 /HPF (None Seen); Urine Urobilinogen Normal (Normal); Urine WBC Clump Rare /HPF (None Seen); Urine pH 6.5 (5.0-7.0)
[2022-09-09 18:55] LABS: Specific Gravity 1.024 (1.005-1.030)
[2022-09-09] MEDS ORDERED: NA CHLORIDE 0.9% 100 ML ONE (18:58)
[2022-09-09] MEDS ORDERED: FENTANYL CITR 100 MCG/2 ML ONE (18:58)
[2022-09-09] MEDS ORDERED: NA CHLORIDE 0.9% 0 ML ONE (18:58)
[2022-09-09] MEDS ORDERED: VANCOMYCIN 1 GM/VIAL ONE ×2 (18:58→19:25)
[2022-09-09] MEDS ORDERED: CEFEPIME 1 GM/VIAL ONE (18:59)
[2022-09-09] MEDS ORDERED: NA CHLORIDE 0.9% 250 ML ONE (19:25)
--- NOTE | 2022-09-09 20:02 | RAD REPORT ---
EXAM DESCRIPTION: CT - Chest Abdomen Pelvis W Cont - 09/09/2022 7:38 pm CLINICAL HISTORY: Chest and abdominal pain. Chest and abdominal swelling COMPARISON: none TECHNIQUE: Computed axial tomography of the chest, abdomen and pelvis was obtained. 100 cc Isovue-30 0 was administered intravenously. Oral contrast was not requested. This limits evaluation of bowel. All CT scans are performed using dose optimization technique as appropriate and may include automated exposure control or mA/KV adjustment according to patient size. FINDINGS: The lungs are clear No mediastinal or hilar lymphadenopathy. No pleural effusion. No pericardial effusion. Liver, spleen, pancreas, adrenals and kidneys are unremarkable Postsurgical changes stomach. 11 x 2 centimeter fluid collection within the posterior aspect of the anterior subcutaneous tissue be low the umbilicus midline and towards the right. Much smaller fluid collection within the subcutaneou s tissue above the umbilicus. The fluid collections do not containing air There is moderate stranding within the subcutaneous fat right and left anterior laterally as well as posteriorly. No evidence of diverticulitis IMPRESSION: Fluid collections within the anterior subcutaneous tissues of the abdomen and pelvis may be subacute hematomas. Fluid associated with cellulitis is another consideration. This can be monito red with a followup ultrasound if there is clinical concern for early abscess Moderate stranding within the subcutaneous fat right and left anterior laterally as well as posterior ly within the abdomen and pelvis may indicate a cellulitis
--- NOTE | 2022-09-09 20:33 | EDPHYS ---
Physician Documentation [facility] Name: Esteban Ruiz Age: 26 yrs Sex: Female : 1995 Arrival Date: 09/09/2022 Time: 16:25 Bed 6 Private MD: ED Physician Morteza Saenz HPI: 09/09 17:25 This 26 yrs old Female presents to ER via Ambulatory with complaints of Fever. cp 17:25 The patient reports fever, with an emergency department temperature of 102.9 degrees cp Fahrenheit. Onset: The symptoms/episode began/occurred this morning. 17:25 Patient is a 26-year-old female who presents to the emergency department with cp complaints of fever that started this morning. Patient reports having multiple cosmetic procedures performed August 20, 2022 in [place]. Procedures included breast left, tummy tuck, BBL and liposuction. Patient reports she has noticed that the surgical incisions have been draining over the last week. 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 - Social history:: Smoking status: Patient denies any tobacco usage or history of. ROS: 17:30 Constitutional: Positive for fever, Negative for poor PO intake. cp 17:30 Eyes: Negative for injury, pain, redness, and discharge. cp 17:30 Cardiovascular: Negative for chest pain, edema, palpitations. 17:30 Respiratory: Negative for cough, shortness of breath, wheezing. 17:30 Abdomen/GI: Positive for abdominal pain, Negative for vomiting, diarrhea, constipation. 17:30 Back: Negative for pain at rest, pain with movement. 17:30 : Negative for urinary symptoms, hematuria, vaginal bleeding, vaginal discharge. 17:30 Neuro: Negative for altered mental status, dizziness, headache, weakness. cp 17:30 All other systems are negative. Exam: 17:33 Constitutional: The patient appears in no acute distress, alert, awake, cp non-diaphoretic, non-toxic, well developed, well nourished, overweight 17:33 Head/Face: Normocephalic, atraumatic. cp 17:33 Eyes: Periorbital structures: appear normal, Conjunctiva: normal, no exudate, no injection, Sclera: no appreciated abnormality, Visual stevens: are intact. 17:33 ENT: External ear(s): are unremarkable, Nose: is normal, Mouth: Lips: moist, Oral mucosa: pink and intact, moist, Posterior pharynx: is normal, airway is patent, no erythema, no exudate. 17:33 Neck: ROM/movement: is normal, is supple, without pain, no range of motions limitations, no meningismus, no nuchal rigidity. 17:33 Chest/axilla: Palpation: is normal, no crepitus, no tenderness. cp 17:33 Cardiovascular: Rate: tachycardic, Rhythm: regular, Edema: is not appreciated, JVD: is not appreciated. 17:33 Respiratory: the patient does not display signs of respiratory distress, Respirations: normal, no use of accessory muscles, no retractions, labored breathing, is not present, Breath sounds: are clear throughout, no decreased breath sounds, no stridor, no wheezing. 17:33 Abdomen/GI: Bowel sounds: active, all quadrants, Palpation: soft, in all quadrants, mild abdominal tenderness, in the right lower quadrant and left lower quadrant, rebound tenderness, is not appreciated, involuntary guarding, is not appreciated. 17:33 Back: pain, is absent, ROM is normal. 17:33 Neuro: Orientation: to person, place \T\ time. Mentation: is normal, Motor: moves all fours, strength is normal, Sensation: is normal. 17:33 Skin: Surgical wounds under right breast appear with moderate dehiscence, moderate cp amount of drainage from open wound is noted, moderate erythema and tenderness to palpation. Lower abdomen the surgical wound appears with dehiscence, mild color drainage is noted, mild tenderness along incision. 18:07 ECG was reviewed by the Attending Physician. cp Vital Signs: 17:10 BP 130 / 82; Pulse 125; Resp 18 S; Temp 102.9(O); Pulse Ox 99% on R/A; Weight 103.42 kg aa5 (R); Height 5 ft. 6 in. (R); 19:02 BP 97 / 64; Pulse 105; Resp 18; Pulse Ox 100% ; mb9 20:45 BP 99 / 50; Pulse 102; Resp 16; Temp 99(TE); Pulse Ox 100% on R/A; jb4 22:00 BP 92 / 74; Pulse 101; Resp 16; Pulse Ox 100% on R/A; jb4 23:19 BP 114 / 65; Pulse 107; Resp 18 S; Pulse Ox 96% ; aa9 17:10 Body Mass Index 36.80 (103.42 kg, 167.64 cm) aa5 MDM: 17:10 Patient medically screened. cp 18:00 Differential diagnosis: viral Infection, bacterial infection, bronchitis, pneumonia cp UTI, gastroenteritis, meningitis, sepsis, abscess. 20:20 Management of patient was discussed with the following: DR Serna, cosmetic surgery, recommends transfer as he is not available for consult. 20:28 Management of patient was discussed with the following: Controller Mechanic: DR Andrew, general surgery, recommends transfer for cosmetic surgery consult. 20:30 Data reviewed: vital signs, nurses notes, lab test result(s), EKG, radiologic studies, cp CT scan, plain films. 22:00 ED course: consult with DR Crane, cosmetic surgeon declines to consult on patient and recommends general surgery can consult and declines transfer. 22:30 ED course: consult with DR Douglas, hospitalist, will accept patient as transfer. 09/09 17:14 Order name: Blood Culture Adult (2) cp 09/09 17:14 Order name: CBC with Diff; Complete Time: 18:19 09/09 18:19 Interpretation: Normal except: WBC 13.70; RBC 3.84; HGB 10.0; HCT 30.8; MCH 26.1; PLT cp 536; MPV 6.6; DARREL% 88.4; LYM% 7.2; NEUT A 12.1. 09/09 17:14 Order name: CMP; Complete Time: 18:19 cp 09/09 17:14 Order name: Lactate w/ 2H reflex if indic.; Complete Time: 18:19 cp / 18:22 Interpretation: Abnormal: LAC 1.5. 09/09 17:14 Order name: Protime (+inr); Complete Time: 18:19 cp 09/09 17:14 Order name: Ptt, Activated; Complete Time: 18:19 cp 09/09 17:14 Order name: Urinalysis w/ reflexes; Complete Time: 19:59 cp 05/03 19:59 Interpretation: Normal except: UESTR 75. cp 05/03 17:14 Order name: PREGU; Complete Time: 19:59 cp 05/03 18:21 Order name: CT Chest, Abdomen, Pelvis - W/Contrast; Complete Time: 20:14 cp 05/03 17:14 Order name: EKG; Complete Time: 17:15 cp 05/03 17:14 Order name: Accucheck; Complete Time: 18:02 cp 05/03 17:14 Order name: Cardiac monitoring; Complete Time: 17:51 cp 05/03 17:14 Order name: EKG - Nurse/Tech; Complete Time: 17:58 cp 05/03 17:14 Order name: IV Saline Lock - Large Bore; Complete Time: 17:51 cp 05/03 17:14 Order name: Labs collected and sent; Complete Time: 17:51 cp 05/03 17:14 Order name: O2 Per Protocol; Complete Time: 17:51 cp 05/03 17:14 Order name: O2 Sat Monitoring; Complete Time: 17:51 cp /03 17:14 Order name: Vital Signs; Complete Time: 17:51 cp EC:07 Rate is 113 beats/min. Rhythm is regular. NV interval is normal. QRS interval is cp normal. QT interval is normal. T waves are Inverted in lead aVR. Interpreted by me. Reviewed by me. Administered Medications: 17:39 Not Given (Physician Discretion): Acetaminophen PO 1000 mg PO once cp 17:58 Drug: Acetaminophen PO 1000 mg Route: PO; mb9 17:58 Drug: NS 0.9% IV 1000 ml Route: IV; Rate: 1 bolus; Site: right antecubital; mb9 23:21 Follow up: Response: No adverse reaction; IV Status: Completed infusion; IV Intake: aa9 1000ml 17:58 Drug: NS 0.9% IV 1000 ml Route: IV; Rate: 1 bolus; Site: right antecubital; mb9 23:21 Follow up: Response: No adverse reaction; IV Status: Completed infusion; IV Intake: aa9 1000ml 18:45 Drug: fentaNYL (PF) IVP 25 mcg Route: IVP; Site: right antecubital; mb9 18:57 Drug: Cefepime IVPB 1 grams Route: IVPB; Rate: 200 ml/hr; Infused Over: 30 mins; Site: mb9 right antecubital; 19:54 Follow up: Response: No adverse reaction; IV Status: Completed infusion; IV Intake: aa9 100ml 20:14 Drug: vancoMYCIN IVPB 1 grams Route: IVPB; Infused Over: 2 hrs; Site: right antecubital;jb4 23:20 Follow up: Response: No adverse reaction aa9 23:20 Follow up: Response: No adverse reaction; IV Status: Completed infusion; IV Intake: aa9 250ml 23:18 Drug: NS 0.9% IV 1000 ml Route: IV; Rate: 1 bolus; Site: right antecubital; aa9 09/10 00:17 Follow up: Response: No adverse reaction; IV Status: Completed infusion; IV Intake: aa9 1000ml 09/09 23:35 Drug: morphine IVP or IV 4 mg Route: IVP; Infused Over: 4 mins; Site: right antecubital;aa9 09/10 00:17 Follow up: Response: No adverse reaction aa9 Disposition: 06:13 Co-signature as Attending Physician, Morteza Saenz MD I agree with the assessment and kdr plan of care. Disposition Summary: 09/09/22 20:32 Transfer Ordered Transfer Location: [facility] cp Reason: Higher level of care cp Condition: Stable cp Problem: new cp Symptoms: have improved cp Accepting Physician: DR Douglas(09/10/22 01:02) aa9 Diagnosis - Sepsis, unspecified organism cp - Cellulitis of trunk, unspecified cp - Cutaneous abscess of abdominal wall cp - Right Breast Cellulitis cp Forms: - Medication Reconciliation Form cp - SBAR form cp Signatures: Dispatcher [employer] EDMorteza Negron MD MD kdr Calderon, Audri RN RN aa5 Williams Muniz PA PA cp Get Mary, RN RN jb4 Cathleen Wright RN RN aa9 Katheryn Lewis RN RN mb9 Corrections: (The following items were deleted from the chart) 09/09 23:13 20:32 [facility] cp cp 09/10 01:02 09/09 23:13 DR Stella dawson aa9 09/11 00:30 00:27 Patient is a 26-year-old female who presents to the emergency department with cp complaints of fever that started this morning. Patient reports having multiple cosmetic procedures performed August 20, 2022 in [place]. Procedures included breast. cp
--- NOTE | 2022-09-09 20:33 | ER ---
Nurse's Notes [facility] Name: Esteban Ruiz Age: 26 yrs Sex: Female : 1995 Arrival Date: 09/09/2022 Time: 16:25 Bed 6 Private MD: Diagnosis: Sepsis, unspecified organism;Cellulitis of trunk, unspecified;Cutaneous abscess of abdominal wall;Right Breast Cellulitis Presentation: 09/09 17:10 Chief complaint: Patient states: "I woke up with a fever around noon". Pt reports she aa5 had tummy tuck, liposuction, BBL, and breast lift August 20, 2022 in [place]. Denies pain but reports abd feels "sore". 17:10 Coronavirus screen: fever. Ebola Screen: Patient denies travel to an Ebola-affected [facility] area in the 21 days before illness onset. Initial Sepsis Screen: Does the patient meet any 2 criteria? Temp <36.0*C (96.8*F)) or > 38.3*C (100.9*F). HR > 90 bpm. Does the patient have a suspected source of infection? Yes:. Risk Assessment: Do you want to hurt yourself or someone else? Patient reports no desire to harm self or others. Onset of symptoms was September 09, 2022. 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 - Social history:: Smoking status: Patient denies any tobacco usage or history of. Screenin:57 [facility] ED Fall Risk Assessment (Adult) History of falling in the last 3 months, mb9 including since admission No falls in past 3 months (0 pts) Confusion or Disorientation No (0 pts) Intoxicated or Sedated No (0 pts) Impaired Gait No (0 pts) Mobility Assist Device Used No (0 pt) Altered Elimination No (0 pt) Score/Fall Risk Level 0 - 2 = Low Risk Oriented to surroundings, Maintained a safe environment, Educated pt \\T\\ family on fall prevention, incl call for assistance when getting out of bed. Abuse screen: Denies threats or abuse. Nutritional screening: No deficits noted. Tuberculosis screening: No symptoms or risk factors identified. Assessment: 18:03 General: Appears uncomfortable, ill, Behavior is cooperative, appropriate for age. mb9 Pain: Denies pain. Neuro: Level of Consciousness is awake, alert, obeys commands, Oriented to person, place, time, situation, Appropriate for age. Cardiovascular: Heart tones S1 S2 present Rhythm is sinus tachycardia. Respiratory: Airway is patent Respiratory effort is even, unlabored, Respiratory pattern is regular, symmetrical, Breath sounds are clear bilaterally. GI: Abdomen is flat, non-distended, Reports diarrhea, nausea. : No signs and/or symptoms were reported regarding the genitourinary system. EENT: No signs and/or symptoms were reported regarding the EENT system. Derm: Skin is intact, Skin is dry, Skin is pale, Skin temperature is hot. Musculoskeletal: Range of motion: intact in all extremities. 19:00 Reassessment: Patient appears in no apparent distress at this time. Patient and/or jb4 family updated on plan of care and expected duration. Pain level reassessed. Patient is alert, oriented x 3, equal unlabored respirations, skin warm/dry/pink. 20:00 Reassessment: Patient appears in no apparent distress at this time. Patient and/or jb4 family updated on plan of care and expected duration. Pain level reassessed. Patient is alert, oriented x 3, equal unlabored respirations, skin warm/dry/pink. 21:00 Reassessment: Patient appears in no apparent distress at this time. Patient and/or jb4 family updated on plan of care and expected duration. Pain level reassessed. Patient is alert, oriented x 3, equal unlabored respirations, skin warm/dry/pink. 22:00 Reassessment: Patient appears in no apparent distress at this time. Patient and/or jb4 family updated on plan of care and expected duration. Pain level reassessed. Patient is alert, oriented x 3, equal unlabored respirations, skin warm/dry/pink. 23:18 Reassessment: Patient appears in no apparent distress at this time. c/o abd pain below aa9 R breast pain, notified provider. 09/10 00:51 Reassessment: Patient appears in no apparent distress at this time. [facility] ambulance aa9 service at bedside. Vital Signs: 09/09 17:10 BP 130 / 82; Pulse 125; Resp 18 S; Temp 102.9(O); Pulse Ox 99% on R/A; Weight 103.42 kg aa5 (R); Height 5 ft. 6 in. (R); 19:02 BP 97 / 64; Pulse 105; Resp 18; Pulse Ox 100% ; mb9 20:45 BP 99 / 50; Pulse 102; Resp 16; Temp 99(TE); Pulse Ox 100% on R/A; jb4 22:00 BP 92 / 74; Pulse 101; Resp 16; Pulse Ox 100% on R/A; jb4 23:19 BP 114 / 65; Pulse 107; Resp 18 S; Pulse Ox 96% ; aa9 17:10 Body Mass Index 36.80 (103.42 kg, 167.64 cm) aa5 ED Course: 16:26 Patient arrived in ED. am2 16:30 Williams Muniz PA is PHCP. cp 16:30 Williams Ortega MD is Attending Physician. cp 17:11 Arm band placed on. aa5 17:14 Triage completed. aa5 17:17 Katheryn Lewis, RN is Primary Nurse. mb9 17:45 Placed in gown. Bed in low position. Call light in reach. Side rails up X 1. Client mb9 placed on continuous cardiac and pulse oximetry monitoring. NIBP monitoring applied. cardiac monitor on. 17:45 Inserted saline lock: 20 gauge in right antecubital area, using aseptic technique. mb9 17:51 Blood Culture Adult (2) Sent. mb9 17:51 CBC with Diff Sent. mb9 17:51 CMP Sent. mb9 17:51 Lactate w/ 2H reflex if indic. Sent. mb9 17:51 Protime (+inr) Sent. mb9 17:51 Ptt, Activated Sent. mb9 17:57 No provider procedures requiring assistance completed. mb9 18:02 Blood Culture Adult (2) Sent. mb9 18:28 Wound Culture: right breast Sent. ap3 18:53 PREGU Sent. mb9 19:40 CT Chest, Abdomen, Pelvis - W/Contrast In Process Unspecified. EDMS 20:17 Morteza Saenz MD is Attending Physician. cp Administered Medications: 17:39 Not Given (Physician Discretion): Acetaminophen PO 1000 mg PO once cp 17:58 Drug: Acetaminophen PO 1000 mg Route: PO; mb9 17:58 Drug: NS 0.9% IV 1000 ml Route: IV; Rate: 1 bolus; Site: right antecubital; mb9 23:21 Follow up: Response: No adverse reaction; IV Status: Completed infusion; IV Intake: aa9 1000ml 17:58 Drug: NS 0.9% IV 1000 ml Route: IV; Rate: 1 bolus; Site: right antecubital; mb9 23:21 Follow up: Response: No adverse reaction; IV Status: Completed infusion; IV Intake: aa9 1000ml 18:45 Drug: fentaNYL (PF) IVP 25 mcg Route: IVP; Site: right antecubital; mb9 18:57 Drug: Cefepime IVPB 1 grams Route: IVPB; Rate: 200 ml/hr; Infused Over: 30 mins; Site: mb9 right antecubital; 19:54 Follow up: Response: No adverse reaction; IV Status: Completed infusion; IV Intake: aa9 100ml 20:14 Drug: vancoMYCIN IVPB 1 grams Route: IVPB; Infused Over: 2 hrs; Site: right antecubital;jb4 23:20 Follow up: Response: No adverse reaction aa9 23:20 Follow up: Response: No adverse reaction; IV Status: Completed infusion; IV Intake: aa9 250ml 23:18 Drug: NS 0.9% IV 1000 ml Route: IV; Rate: 1 bolus; Site: right antecubital; aa9 09/10 00:17 Follow up: Response: No adverse reaction; IV Status: Completed infusion; IV Intake: aa9 1000ml 09/09 23:35 Drug: morphine IVP or IV 4 mg Route: IVP; Infused Over: 4 mins; Site: right antecubital;aa9 09/10 00:17 Follow up: Response: No adverse reaction aa9 Medication: 09/09 17:57 VIS not applicable for this client. mb9 Intake: 19:54 IV: 100ml; Total: 100ml. aa9 23:20 IV: 250ml; Total: 350ml. aa9 23:21 IV: 1000ml; Total: 1350ml. aa9 23:21 IV: 1000ml; Total: 2350ml. aa9 09/10 00:17 IV: 1000ml; Total: 3350ml. aa9 Outcome: 09/09 20:32 ER care complete, transfer ordered by MD. dawson 09/10 01:02 Patient left the ED. aa9 Signatures: Dispatcher [employer] EDMS Neema Colindres RN RN aa5 Williams Muniz PA PA cp Bryson, James RN RN jb4 Erinn Elias am2 Erinn Nicole RN RN ap3 Cathleen Wright RN RN aa9 Katheryn Lewis RN RN mb9 Corrections: (The following items were deleted from the chart) 09/09 17:24 17:10 Chief complaint: Patient states: "I woke up with a fever around noon". aa5 aa5
[2022-09-09] MEDS ORDERED: NA CHLORIDE 0.9% 1,000 ML ONE (23:18)
[2022-09-09] MEDS ORDERED: MORPHINE 4 MG/ML SYR ONE (23:32)
[2022-09-10 01:11] VITALS: TEMP 99
[2022-09-10 01:14] VITALS: BP 114/65; O2SAT 96
--- NOTE | 2022-09-10 07:50 | EKG ---
Test Date: 2022-09-09 Test Time: 18:00:41 District Administrative Assistant: MELODIE MEASUREMENT RESULTS: Intervals: Rate: 113 NV: 138 QRSD: 74 QT: 292 QTc: 400 [place]: P: 32 NV: 138 QRS: -5 T: -4 INTERPRETIVE STATEMENTS: Sinus tachycardia Nonspecific T wave abnormality Abnormal ECG No previous ECG available for comparison Electronically Signed On 09-10-22 07:49:38 CDT by Ramón Hassan
== END 2022-09-10 01:02 | disposition short-term general hospital (02) ==
LOC: ER 16:25
DX: A41.9 Sepsis, unspecified organism (principal); N61.0 Mastitis without abscess; L03.311 Cellulitis of abdominal wall; Z98.890 Other specified postprocedural states
CPT/HCPCS: 96365; 96367; 96361; 93005; 87040 ×2; 85025; 81001; 36415; 81025; 85610; 83605; 85730; 80053; 71260; 74177; 96375; 99285; 96366; Q9967; J3010; J7050; J7030 ×2; J0692